=== PATIENT | male | born 1955 | race Caucasian/White ===

== ENCOUNTER 2020-01-01 01:03 | Emergency (ER) | payer BC, SELFPAY ==
--- NOTE | ~2020-01-01 | XR_ITS ---
EXAMINATION: XR chest 2V DATE: 01/01/2020 01:28 INDICATION: Chest pain and shortness of breath TECHNIQUE: PA and lateral views of the chest are obtained. COMPARISON: 03/04/2019, 05/04/2015 FINDINGS: There is a questionable nodular opacity of the right upper lung zone. There is no pleural e ffusion or pneumothorax. The cardiomediastinal silhouette is normal. The visualized bones and soft ti ssues are unremarkable. IMPRESSION: 1. Possible nodular opacity of the right upper lung zone. Recommend followup radiographs in 10-14 day s after appropriate therapy to evaluate for improvement/resolution. Reviewed, dictated and finalized at location A. LOADER MEAT IMPRESSION: 1. Possible nodular opacity of the right upper lung zone. Recommend followup ra diographs in 10-14 days after appropriate therapy to evaluate for improvement/r esolution.
--- NOTE | ~2020-01-01 | CT_ITS ---
EXAMINATION: CT abdomen pelvis w con INDICATION: Abdominal pain TECHNIQUE: Computed tomographic images of the abdomen and pelvis were obtained after the administrati on of 100 cc of Omnipaque 350 intravenous contrast. The dose-length product (DLP) was 558.91 mGy-cm. Automated exposure control and iterative reconstruction technique were employed. COMPARISON: None available FINDINGS: Minimal dependent atelectasis is present in the lung bases. The heart size is normal. There is a 9 mm lesion of the liver dome which appears to demonstrate peripheral enhancement, likely a hem angioma. The spleen, pancreas, and adrenal glands are normal. There is mild distention of the gallbla dder. No definite gallbladder wall thickening or gallstones are seen. The kidneys are unremarkable. N o pathologically enlarged abdominal or pelvic lymph nodes are identified. There is no free intraperit pierce gas or evidence of bowel obstruction. A moderate volume of colonic stool is present. The append ix is normal. There is mild lumbar spondylosis. IMPRESSION: 1. Mild gallbladder distention without definite additional findings of acute cholecystitis. Recommend right upper quadrant ultrasound if there is clinical concern for cholecystitis. These findings and recommendations were discussed with Dr. Brown Maria DO in the Emergency Dep artment at 0300 hours on 01/01/2020 by the Humanoid Radiologist. Reviewed, dictated and finalized at location A. RACT ASSISTANT IMPRESSION: 1. Mild gallbladder distention without definite additional findings of acute ch olecystitis. Recommend right upper quadrant ultrasound if there is clinical con cern for cholecystitis. These findings and recommendations were discussed with Wayne Calixto in the Emergency Department at 0300 hours on 01/01/2020 by the Humanoid Radiolog ist.
[2020-01-01 01:06] VITALS: BP 176/77; PULSE 80; RESP 20; TEMP 36.8; O2SAT 100
--- NOTE | 2020-01-01 01:06 | ED.CHESTPAIN ---
HPI - Chest Pain General Chief Complaint: Chest Pain Stated Complaint: CHEST PAIN Time Seen by Provider: 01/01/20 01:04 Source: patient Mode of arrival: ambulatory Limitations: no limitations History of Present Illness HPI narrative: A 64 y/o male presents to the ED with c/o chest pain. Pt states that 4 hours prior to his ED arrival, he started to have mid-back pain. He notes that the mid-back pain then moved to his bilateral lower chest chest and felt like a fullness.. Pt adds that he was nauseous today and has also been more SOB recently. He describes the CP as a pressure. Pt has no other complaints at this time. Patient states he feels like he needs to belch but cannot belch complaint: chest pain Onset (ago): hour(s) (4) Timing of current episode: constant Pain location: left chest and right chest Quality: other (Pressure) Associated symptoms: nausea, dyspnea and other (Mid-back pain) Related Data Home Medications Medication Instructions Recorded Confirmed rosuvastatin 20 mg tablet 20 mg PO DAILY 10/05/19 Allergies Allergy/AdvReac Type Severity Reaction Status Date / Time No Known Allergies Allergy Mild Verified 10/05/19 08:52 Review of Systems Review of Systems: All systems reviewed & are unremarkable except as noted in HPI and below Cardiovascular: Cardiovascular: Reports chest pain (Bilateral) Respiratory: Respiratory: Reports dyspnea Gastrointestinal: Gastrointestinal: Reports nausea Musculoskeletal: Musculoskeletal: Reports back pain (Mid) [facility] Past Medical History Medical History (Updated 01/01/20 @ 05:44 by Brown Maria DO) Arm fracture, left Essential (primary) hypertension LULU (obstructive sleep apnea) Uses continuous positive airway pressure (CPAP) ventilation at home Surgical History Surgical History (Updated 01/01/20 @ 01:09 by Gabriela Rogers) No pertinent past surgical history Family History Family History Mother Family history of type 2 diabetes mellitus Diabetes mellitus Other Family history of coronary artery disease Social History Social History Smoking status: Never smoker Alcohol intake: current Gender identity (if verbalized by the patient): Male Exam Narrative: Exam Narrative: APPEARANCE: No acute distress, nontoxic, resting in bed HEENT: Normocephalic, atraumatic, OMM RESPIRATORY: No respiratory distress, clear to auscultation bilaterally with no rhonchi wheezing or rales CARDIOVASCULAR: RRR s murmur ABDOMINAL: Soft, nondistended, tender palpation epigastric and right upper quadrant, no tenderness left upper quadrant, right lower quadrant left lower quadrant, no rebound or guarding MUSCULOSKELETAl: Moves all extremities. No clubbing, cyanosis or edema. NEURO: Awake and alert. Following commands, speech normal, no focal deficits SKIN:: Warm, dry. Normal Color PSYCHIATRIC: Normal affect/mood Course Course Emergency Course: Patient states that they are feeling much better at this time. States abdominal pain has resolved. Repeat abdominal exam shows the patient's abdomen to be soft and nontender. Discussed with patient results of workup and diagnosis. Discussed need for follow-up with primary care physician, reasons to return to the emergency department in proper use of medication. Patient understands and agrees to current treatment plan. Vital Signs Vital signs: Vital Signs Temperature 98.3 F 01/01/20 01:06 Pulse Rate 80 01/01/20 01:06 Respiratory Rate 20 01/01/20 01:06 Blood Pressure 176/77 H 01/01/20 01:06 Pulse Oximetry 100 01/01/20 01:06 Temperature 98.3 F 01/01/20 01:06 Pulse Rate 62 01/01/20 05:26 Respiratory Rate 16 01/01/20 05:26 Blood Pressure 130/74 01/01/20 05:26 Pulse Oximetry 98 01/01/20 05:26 MDM - Chest Pain MDM Narrative Medical decision making narrative: Patient's abdomen is soft without signi
--- NOTE | 2020-01-01 01:08 | ECG_ITS ---
Measurements Intervals [place] Rate: 73 P: 2 CO: 167 QRS: 18 QRSD: 97 T: 64 QT: 363 QTc: 403 Interpretive Statements SINUS RHYTHM BORDERLINE T WAVE ABNORMALITY- LATERAL LEADS BASELINE ARTIFACT- I, II, III, AVL, AVF BORDERLINE ECG Electronically Signed On 01-01-2020 8:37:04 QUALITY PROCESS LEAD by Malik Rader D.O.
[2020-01-01 01:22] LABS: Basophils Absolute Auto 0.1 K/mm3 (0.0-0.1); Basophils Percent Auto 0.6 % (0.2-1.2); Eosinophils Absolute Auto 0.3 K/mm3 (0-0.3); Eosinophils Percent Auto 2.9 % (0-4.4); Immature Granulocyte Absolute 0.04 K/mm3 (0.00-0.031); Immature Granulocyte Percent A 0.4 % (0-0.5); Lymphocytes Absolute Auto 2.61 K/mm3 (0.9-3.2); Lymphocytes Percent Auto 28.7 % (18.3-44.2); Mean Corpuscular HGB Conc 32.6 g/dl (32-36); Mean Corpuscular Hemoglobin 30.5 pg (26-34); Mean Corpuscular Volume 93.7 fl (80-100); Mean Platelet Volume 10.4 fl (7.4-10.4); Monocytes Absolute Auto 0.7 K/mm3 (0.1-0.6); Neutrophils Absolute Auto 5.4 K/mm3 (1.3-6.7); Neutrophils Percent Auto 59.4 % (45.5-73.1); Nucleated Red Blood Cells Perc 0.2 % (0.0-0.2); Platelet Count Result 302 k/mm3 (150-375); Red Blood Count 4.91 M/mm3 (4.6-6.20); Red Cell Distribution Width 12.1 % (11.5-14.5); White Blood Count 9.1 K/mm3 (4.5-10.0)
[2020-01-01 02:01] LABS: INR 0.9; Prothrombin Time 12.3 Seconds (11.1-14.7)
[2020-01-01 02:02] LABS: Partial Thromboplastin Time 30.4 SECONDS (22.3-36.8)
[2020-01-01 02:03] LABS: Alanine Aminotransferase 16 U/L (4-50); Albumin Level 4.6 g/dL (3.5-5.1); Alkaline Phosphatase 63 U/L (38-126); Aspartate Amino Transferase 20 U/L (17-59); Bilirubin,Total 0.6 mg/dL (0.2-1.3); Blood Urea Nitrogen 14 mg/dL (9-20); Calcium 9.1 mg/dL (8.4-10.2); Carbon Dioxide 27 mmol/L (22-30); Chloride 91 mmol/L (98-107); Estimated Glomerular Filt Rate > 60; Glucose 119 mg/dL (75-110); Lipase 215 U/L (23-300); Potassium 4.4 mmol/L (3.4-5.0); Sodium 130 mmol/L (137-145)
[2020-01-01 02:14] LABS: Troponin I < 0.012 ng/mL (0.000-0.034)
[2020-01-01 02:53] VITALS: BP 148/79; PULSE 65; RESP 14; O2SAT 100
[2020-01-01] MEDS: KETOROLAC 30 MG/ML VIAL (*BKC) IV PUSH (02:54)
[2020-01-01 03:00] VITALS: O2SAT 99
[2020-01-01 03:37] LABS: Add Urine Microscopic? NO; Appearance Urine Clear (Clear); Bilirubin Urine Negative (Negative); Blood Urine Negative (Negative); Color Urine Straw (Yellow); Glucose Urine UA Negative (Negative); Ketones Urine Negative (Negative); Leukocyte Esterase Ur Negative LEU/UL (Negative); Nitrate Urine Negative (Negative); Protein Urine Negative (Negative); Specific Grav Ur 1.025 (1.001-1.035); Urobilinogen Urine Negative mg/dL (<2.0)
[2020-01-01 05:10] LABS: Troponin I < 0.012 ng/mL (0.000-0.034)
[2020-01-01 05:26] VITALS: BP 130/74; PULSE 62; RESP 16; O2SAT 98
[2020-01-01 05:57] VITALS: BP 129/86; PULSE 80; RESP 19; TEMP 36.2; O2SAT 100
== END 2020-01-01 05:58 | disposition home or self-care (01) ==
PROVIDERS: Emergency Provider Emergency Medicine; PCP Family Medicine
DX: R07.9 Chest pain, unspecified (principal); R10.31 Right lower quadrant pain; G47.33 Obstructive sleep apnea (adult) (pediatric); I10 Essential (primary) hypertension
CPT/HCPCS: 36415; 71046; 74177; 80053; 81003; 83690; 84484; 85025; 85610; 85730; 93005; 96374; 96375; 99284; J0131; J1885; Q9967

== ENCOUNTER → 2020-01-04 11:13 | Outpatient (CLI) | payer BC, SELFPAY ==
--- NOTE | ~2020-01-04 | US_ITS ---
EXAMINATION: US abdomen complete EXAM DATE: 01/04/2020 11:38 INDICATION: Right upper quadrant pain. Abnormal CT report. TECHNIQUE: Multiple grayscale and Doppler images of the complete abdomen were obtained (by a technolo gist who performed the scan) and subsequently reviewed. Correlation is made to CT 01/01/2020. FINDINGS: The abdominal aorta is normal in caliber. Visualized portion IVC is patent. The pancreatic head a nd body are normal in appearance. The pancreatic tail is not visualized. Mildly echogenic liver parenchyma, hepatic steatosis. There are no focal liver lesions identified. There is no evidence of intrahepatic biliary duct dilation. Portal venous flow was seen in the hepa topedal, normal direction and has normal Doppler waveform. Common bile duct measures 4 mm, which is normal. The gallbladder wall is normal in thickness, with ex pected amount of distention. No sonographic evidence of pericholecystic fluid. There is no cholelit hiases. Technologist performing exam reports patient did not demonstrate sonographic Diggs's sign. Please note that this sign is less reliable in patients who have received pain medication. Right kidney: There is normal contour and echogenicity. It measures 10.4 x 4.7 x 6.0 centimeters. There are no focal renal lesions identified. There is no hydronephrosis. Left kidney: There is normal contour and echogenicity. It measures 11.1 x 5.4 x 4.4 centimeters. T here are no focal renal lesions identified. There is no hydronephrosis. The spleen measures 8.7 centimeters and is morphologically normal. IMPRESSION: 1. Hepatic steatosis. 2. Unremarkable gallbladder. Reviewed, dictated and finalized at location B. TRONIC SECURITY TECHNICIAN
== END ==
PROVIDERS: PCP Family Medicine; Visit Provider Nurse Practitioner Family
DX: R10.11 Right upper quadrant pain (principal); K76.0 Fatty (change of) liver, not elsewhere classified
CPT/HCPCS: 76700

== ENCOUNTER → 2020-01-27 10:45 | Outpatient (CLI) | payer BC, SELFPAY ==
--- NOTE | ~2020-01-27 | XR_ITS ---
XR chest 2V DATE: 01/27/2020 10:55 INDICATION: Chest pain, shortness of breath Possible nodular opacity of right upper lung zone reported on 01/01/2020 chest radiographic examinatio n; 10-14 day follow-up was recommended. TECHNIQUE: PA and lateral views COMPARISON: 01/01/2020 PA and lateral chest FINDINGS: No pulmonary infiltrate or consolidation, pleural effusion or pulmonary vascular congestion or pneumothorax. The questioned nodular opacity of the right upper lung zone on the 01/01/2020 PA chest radiograph is n ot confirmed on this examination. Normal heart size. Degenerative spurring of the thoracic spine. IMPRESSION: No active cardiopulmonary disease Reviewed, dictated and finalized at location B.
== END ==
PROVIDERS: PCP Nurse Practitioner Family; Visit Provider Nurse Practitioner Family
DX: R93.89 Abnormal findings on diagnostic imaging of other specified body structures (principal)
CPT/HCPCS: 71046

== ENCOUNTER 2020-08-25 07:41 | Outpatient (CLI) | payer MEDICARE, SELFPAY ==
--- NOTE | ~2020-08-25 | US_ITS ---
EXAMINATION: US right upper quadrant DATE: 08/25/2020 08:20 INDICATION: Right upper quadrant pain TECHNIQUE: Multiple grayscale and Doppler ultrasound images of the abdomen were obtained. COMPARISON: 01/04/2020 FINDINGS: The head and and body of the pancreas are normal. The pancreatic tail is obscured by bowel gas. The liver demonstrates increased echogenicity, heterogenous echotexture, and decreased through t ransmission. No surface nodularity. Normal hepatopetal flow in the main portal vein. The gallbladder is normal with no abnormal wall thickening, pericholecystic fluid or stones. The normal common bile d uct measures 2 mm. There was no sonographic Diggs sign. IMPRESSION: 1. Diffuse hepatic steatosis. Reviewed, dictated and finalized at location A.
== END 2020-08-25 07:42 | disposition home or self-care (01) ==
PROVIDERS: PCP Nurse Practitioner Family; Visit Provider Nurse Practitioner Family
DX: K76.0 Fatty (change of) liver, not elsewhere classified (principal)
CPT/HCPCS: 76705

== ENCOUNTER 2020-09-04 07:13 | Outpatient (CLI) | payer MEDICARE, SELFPAY ==
--- NOTE | ~2020-09-04 | NM_ITS ---
EXAMINATION: NM hepatobiliary w pharm DATE: 09/04/2020 09:56 INDICATION: Right upper quadrant abdominal pain. COMPARISON: CT abdomen and pelvis 01/01/2020, ultrasound abdomen 08/25/2020 TECHNIQUE: 5.1 mCi Tc-99m mebrofenin (Choletec) was administered intravenously. Scintigraphic images of the abdomen were obtained for one hour. Then, 1.7 mcg sincalide (Kinevac) IV was administered, an d imaging was continued for 30 minutes. FINDINGS: There is normal clearance of radiotracer from the blood pool. There is homogeneous tracer u ptake by the liver. Activity progresses to the bowel and gallbladder. Gallbladder ejection fraction (GBEF) was 7%. Note that most patients with gallbladder dysfunction have GBEF < 35%, which overlaps w ith the broad normal range of 10-90%. IMPRESSION: 1. Low gallbladder ejection fraction, consistent with gallbladder dysfunction and/or chronic cholecy stitis. Reviewed, dictated and finalized at location A. IMPRESSION: 1. Low gallbladder ejection fraction, consistent with gallbladder dysfunction and/or chronic cholecystitis.
== END 2020-09-04 07:14 | disposition home or self-care (01) ==
PROVIDERS: PCP Family Medicine; Visit Provider Nurse Practitioner Family
DX: R10.11 Right upper quadrant pain (principal)
CPT/HCPCS: 78227; A9537; J2805

== ENCOUNTER 2020-09-06 09:16 | Outpatient (CLI) | payer MEDICARE, SELFPAY ==
[2020-09-06 18:18] LABS: SARS-CoV-2 RNA PCR Negative
== END 2020-09-06 09:17 | disposition home or self-care (01) ==
LOC: ANHCOVIDDT 09:16
PROVIDERS: PCP Family Medicine; Visit Provider Surgery
DX: Z01.812 Encounter for preprocedural laboratory examination (principal); Z20.828 Contact with and (suspected) exposure to other viral communicable diseases
CPT/HCPCS: 36415; 80076; 82150; 83690; 87635; C9803; U0003

== ENCOUNTER 2020-09-06 09:28 | Outpatient (CLI) | payer MEDICARE, SELFPAY ==
[2020-09-06 09:56] LABS: Alanine Aminotransferase 20 U/L (4-50); Albumin Level 4.8 g/dL (3.5-5.1); Alkaline Phosphatase 58 U/L (38-126); Amylase 62 U/L (30-110); Aspartate Amino Transferase 23 U/L (17-59); Bilirubin,Total 0.5 mg/dL (0.2-1.3); Lipase 263 U/L (23-300)
== END 2020-09-06 09:29 | disposition home or self-care (01) ==
PROVIDERS: PCP Family Medicine; Visit Provider Surgery
DX: K82.8 Other specified diseases of gallbladder (principal)
CPT/HCPCS: 36415; 80076; 82150; 83690

== ENCOUNTER 2020-09-08 00:57 | Day surgery (SDC) | payer MEDICARE, SELFPAY ==
[2020-09-06 09:51] VITALS: BMI 25.8
--- NOTE | 2020-09-07 10:17 | WPDANESEPPF ---
Anes - Initial Pre Proc Eval Procedure: Operation Date: 09/08/20 10:00 Proposed Procedures p Laparoscopic Cholecystectomy with Intra Operative Cholangiograms, Possible Open - Elmer Harris MD s Umbilical Hernia Repair - Elmer Harris MD Date/Time: 09/07/20 10:17 Surgeon: Elmer Harris MD Pre Op Diagnosis: biliary dyskinesia, umbilical hernia Patient Data Age: 64 Gender: M Height: 1.78 m Weight: 81.65 kg Allergies Allergy/AdvReac Type Severity Reaction Status Date / Time No Known Allergies Allergy Mild Verified 09/06/20 09:51 Home Medications Medication Instructions Recorded Confirmed Type doxycycline hyclate 20 mg tablet 20 mg PO DAILY 09/05/20 09/08/20 History lisinopril-hydrochlorothiazide 1 tablet PO DAILY 09/06/20 09/08/20 History omeprazole 20 mg PO DAILY 09/06/20 09/08/20 History Patient hx anesthesia problems: none Family hx anesthesia problems: none [facility] Past Medical History Medical History (Updated 09/07/20 @ 09:26 by Lindy Nash CMA) Arm fracture, left Essential (primary) hypertension LULU (obstructive sleep apnea) Uses continuous positive airway pressure (CPAP) ventilation at home Surgical History Surgical History (Updated 09/06/20 @ 08:13 by Lindy Nash CMA) History of surgery on arm Family History Family History Mother Family history of type 2 diabetes mellitus Diabetes mellitus Other Family history of coronary artery disease Social History Social History (Updated 09/05/20 @ 15:50 by Celeste Lindo [facility]) Smoking status: Never smoker Alcohol intake: current Drinks per week: 10 Gender identity (if verbalized by the patient): Male Spiritual care concerns: No Anes - Eval Final PreProcedure Day of Procedure 09/07/20 10:17 Patient weight: overweight Heart: regular rate and rhythm Lungs: clear to auscultation and normal air movement Airway: Mallampati scale class II Neurological: alert and oriented Last oral intake: >/= 8 hours ASA classification: III Emergent: no Anesthetic plan: proceed Anesthesia type and monitoring: general ETT and standard monitoring Informed Consent: The patient's anesthetic plan and its attendant risks and benefits were discussed with the patient/family/POA. Questions were solicited and answers provided to the satisfaction of the patient/family/POA.
[2020-09-08] VITALS (8 sets, daily range): BP systolic 137–166; BP diastolic 70–86; PULSE 53–71; RESP 12–20; TEMP 36.1–36.5; O2SAT 98–100
[2020-09-08] MEDS: LACTATED RINGERS 1,000 ML 30 ML IV CONT ×2 (09:15→12:21)
[2020-09-08] MEDS: ACETAMINOPHEN 500 MG TABLET 1000 MG PO (09:29)
[2020-09-08] MEDS: KETOROLAC 15 MG/ML VIAL (*BKC) IV PUSH (09:30)
--- NOTE | 2020-09-08 10:21 | WPDHPUPDATE1 ---
History and Physical Update Update Date/Time: 09/08/20 10:21 History and Physical has been reviewed, including an updated exam of the patient. There are NO changes in the patient's condition. Risks, benefits, and alternatives have been discussed and questions answered. Patient agrees to proceed with procedure.
[2020-09-08] MEDS: ceFAZolin 2 GM/D5W 50 ML 2 GM/50 ML BAG IVPB (10:44)
[2020-09-08] MEDS: BUPIVACAINE/EPINEPHRINE 0.5% 10 ML VIAL 30 ML INFILTRATE (11:25)
--- NOTE | 2020-09-08 12:22 | PM.PROC ---
Procedure Note - Detailed Date of procedure: 09/08/20 Pre-op diagnosis: biliary dyskinesia, umbilical hernia Chronic Cholecystitis with biliary dyskinesia small umbilical hernia Post-op diagnosis: same Procedure performed: Laparoscopic Cholecystectomy Repair of small umbilical hernia Description of procedure: Patient was seen preoperatively in the holding area and risks, benefits and alternatives confirmed. Patient was taken to the operating room and general anesthesia was induced. A time out was then preformed with the surgery team confirming patient and site of surgery. The abdomen was prepped and draped in the usual sterile fashion. Incision was made just above the umbilicus with an 15 blade knife. This was made in an a downward facing curvilinear line and then we carefully dissected through subcu tissues and dissected out the preperitoneal fat that was up in it umbilical hernia. This was carefully excised the peritoneum entered under direct vision and Zuniga cannula placed after the stay sutures noted below were placed. The hernia defect ended up being a little less than 1 cm in diameter. I placed 2 stay sutures of O- Vicryl on either side of the mid-line fascia beneath the umbilicus and was then able to slide in the Zuniga cannula through the fascial defect into the peritoneum. First under low flow and then under high flow the abdomen was insufflated with carbon dioxide never exceeding a pressure of 14. Three 5 mm trocars were then introduced under direct vision. The following trocars were introduced under direct vision: a 5 mm in the epigastrium and two 5 mm trocars along the right costal margin laterally in the subcostal area. There were no significant adhesions to the gallbladder. I then carefully used the L-shaped cautery and the [place] dissector to dissect out the triangle of Calot. I then was able to dissect out both the cystic duct and cystic artery and identify a window of safety. The gall bladder was grasped and the cystic duct and artery were dissected free and clipped with an 5 mm endo-clip lath tier. The cystic duct and artery were clipped with use of 2 clips on the patient's side 1 on the gallbladder side utilizing a 5 mm endoclip-lath tier. The cystic duct was then transected. The cystic artery was also transected at this point. The gall bladder was removed using electrocautery and then removed from the abdomen using a large 10 mm grasper via the umbilical incision. The trocars were removed visualizing hemostasis and the remaining gas evacuated. The large trocar site at the umbilicus/ site of the hernia defect, was closed with use of three interrupted # 1 Vicryl sutures in a transverse manor. The 2 stay sutures mentioned above on either side of the fascia were removed. I then used 1 more 0 Vicryl suture to tack the base of the umbilicus to the underlying fascia. Several 4 0 Monocryl sutures were used in the subcu tissues to approximate the subcutaneous tissues underneath the skin closure here at the umbilicus. Further local anesthetic was placed into each incision for postop pain control. The skin incisions were closed with subcuticular sutures of 4-0 Monocryl. Surgical glue then was applied to all the incisions. Patient tolerated the procedure well was taken to the recovery room in good condition. Implants: none Anesthesia: JACKSON Surgeon: Elmer Harris MD Digital Print Operator: Lore HARRIS, OR assistant press operator offset Estimated blood loss (mL): 5 Drains: No Packing: No Pathology: yes (Gallbladder and some preperitoneal fat from the umbilical hernia site) Complications: No immediate complications Condition: stable Disposition: PACU Findings: 1. A fat containing umbilical hernia with a defect of about 1 cm. 2. The gallbladder upon palpation after removal which was not inflamed and seemed to have a soft tissue density at its upper end to palpation. Perhaps an adenomyoma.
[2020-09-08] MEDS: oxyCODONE HCL (*CRX) 5 MG TAB IR PO (14:08)
== END 2020-09-08 14:34 | disposition home or self-care (01) ==
PROVIDERS: PCP Family Medicine; Visit Provider Surgery
PROC: 0FT44ZZ Resection of Gallbladder, Percutaneous Endoscopic Approach (ICD-10-PCS; CPT 47562; principal; 2020-09-08 10:00)
PROC: (CPT 47562; 2020-09-08 10:00)
DX: K81.1 Chronic cholecystitis (principal); K42.9 Umbilical hernia without obstruction or gangrene; G47.33 Obstructive sleep apnea (adult) (pediatric); I10 Essential (primary) hypertension
CPT/HCPCS: 47562; 88300; 88304; A9270; J0330; J0690; J1100; J1885; J2250; J2405; J2704; J3010; J7030; J7120

== ENCOUNTER 2020-09-12 09:23 | Outpatient (CLI) | payer MEDICARE, SELFPAY ==
[2020-09-14 08:53] LABS: H pylori Ag Stool Not Detected (Not Detected)
== END 2020-09-12 09:24 | disposition home or self-care (01) ==
PROVIDERS: PCP Family Medicine; Visit Provider Surgery
DX: R10.11 Right upper quadrant pain (principal)
CPT/HCPCS: 87338

== ENCOUNTER 2022-05-30 07:24 | Outpatient (CLI) | payer MEDICARE, SELFPAY ==
--- NOTE | ~2022-05-30 | MR_ITS ---
EXAMINATION: MR brain/brain stem wo con DATE: 05/30/2022 08:44 INDICATION: Bilateral upper extremity tremor. TECHNIQUE: Magnetic resonance imaging (MRI) of the brain and brainstem was performed without intraven ous contrast. COMPARISON: None. FINDINGS: There is no intracranial hemorrhage, acute infarction, or abnormal intracranial mass lesion . The ventricles are normal in size. The paranasal sinuses are clear. The orbits are normal. The mast oid air cells are normal. IMPRESSION: 1. Normal brain. Reviewed, dictated and finalized at location A. IMPRESSION: 1. Normal brain.
== END 2022-05-30 07:25 | disposition home or self-care (01) ==
PROVIDERS: PCP Family Medicine; Visit Provider Nurse Practitioner Family
DX: R25.1 Tremor, unspecified (principal)
CPT/HCPCS: 70551

== ENCOUNTER 2023-02-25 13:08 | Outpatient (CLI) | payer MEDICARE, SELFPAY ==
--- NOTE | ~2023-02-25 | XR_ITS ---
EXAMINATION: XR chest 2V 02/25/2023 13:38 INDICATION: Chest pain PROCEDURE: 2 view chest COMPARISON: Comparison to multiple prior studies sequentially, with oldest reviewed study dated 05/04. FINDINGS: The lungs are clear. The cardiomediastinal silhouette is within normal limits. There are no pleural effusions. There is no pneumothorax suspected. IMPRESSION: 1: NO ACUTE CARDIOPULMONARY DISEASE. Reviewed, dictated and finalized at location A.
== END 2023-02-25 13:09 | disposition home or self-care (01) ==
PROVIDERS: PCP Family Medicine; Visit Provider Family Medicine
DX: M54.6 Pain in thoracic spine (principal)
CPT/HCPCS: 71046

== ENCOUNTER → 2023-10-06 09:48 | Outpatient (CLI) | payer MEDICARE, SELFPAY ==
--- NOTE | ~2023-10-06 | XR_ITS ---
EXAMINATION: XR chest 2V 10/06/2023 10:10 INDICATION: Localized swelling. PROCEDURE: 2 view chest COMPARISON: Comparison to multiple prior studies sequentially, with oldest reviewed study dated 03/04. FINDINGS: The lungs are clear. The cardiomediastinal silhouette is within normal limits. There are no pleural effusions. There is no pneumothorax suspected. IMPRESSION: 1: NO ACUTE CARDIOPULMONARY DISEASE. Reviewed, dictated and finalized at location B. NOLOGY MANAGER
== END ==
PROVIDERS: PCP Family Medicine; Visit Provider Family Medicine
DX: R22.2 Localized swelling, mass and lump, trunk (principal)
CPT/HCPCS: 71046

== ENCOUNTER 2024-08-10 02:09 | Day surgery (SDC) | payer MEDICARE, SELFPAY ==
[2024-07-15 12:05] VITALS: BMI 29.0
[2024-08-10 06:36] VITALS: BMI 28.7
[2024-08-10 06:44] VITALS: BP 147/76; PULSE 70; RESP 20; TEMP 36.7; O2SAT 100
--- NOTE | 2024-08-10 06:52 | WPDANESEPPF ---
Anes - Initial Pre Proc Eval Procedure: Operation Date: 08/10/24 08:00 Proposed Procedures p Colonoscopy - Mk Marcum MD Date/Time: 08/10/24 06:52 Surgeon: Mk Marcum MD Pre Op Diagnosis: Family HX neoplasm of digestive organs Patient Data Age: 68 Gender: M Height: 1.75 m Weight: 88.2 kg Last Vital Signs Temp 98.1 F 08/10/24 06:44 Pulse 70 08/10/24 06:44 Resp 20 08/10/24 06:44 BP 147/76 H 08/10/24 06:44 Pulse Ox 100 08/10/24 06:44 O2 Del Method Room Air 08/10/24 06:44 Allergies Allergy/AdvReac Type Severity Reaction Status Date / Time No Known Allergies Allergy Mild Verified 07/15/24 12:03 Home Medications Medication Instructions Recorded Confirmed Type dicyclomine 20 mg tablet 20 mg PO BID 08/23/21 07/15/24 History hydrocortisone acetate 30 mg 30 mg RECTAL BID #12 ea 03/30/24 08/10/24 Rx rectal suppository (Proctocort) carbidopa 25 mg-levodopa 100 mg 1.5 tablet PO TID #120 tabs 05/11/24 07/15/24 Rx tablet lisinopril 20 mg tablet 20 mg PO DAILY #90 tabs 07/15/24 07/15/24 Rx Patient hx anesthesia problems: none Family hx anesthesia problems: none Results Review: All pre-operative results and documents have been reviewed as part of the pre-operative evaluation. [facility] Past Medical History Medical History Arm fracture, left Essential (primary) hypertension Lower abdominal pain LULU (obstructive sleep apnea) Supraclavicular fossa fullness Uses continuous positive airway pressure (CPAP) ventilation at home Surgical History Surgical History History of surgery on arm Hx laparoscopic cholecystectomy Umbilical hernia without mention of obstruction or gangrene Family History Family History Mother Family history of type 2 diabetes mellitus Diabetes mellitus Lung cancer Father Tobacco use Sibling Diabetes mellitus Carcinoma of colon Grandparent Parkinson's disease Other Family history of coronary artery disease Social History Social History Smoking status: Never smoker Second hand tobacco smoke exposure: No Alcohol intake: current Drinks per week: 8 Alcohol use details: social Substance use: never Substance use type: does not use Do You Feel Safe in your Home?: Yes Lack of Transportation: No Lack of Food: Never True Current Housing: I Have Housing Concerned About Future Housing: No Difficulty Paying Gas/Electric Bills: No Difficulty Paying for Meds: No Currently Unemployed: No Education: Bachelor's Degree Difficulty w/ Childcare or Family Care: No Living arrangements: alone Occupation/Education: retired Additional occupation/education comments: [employer] Gender identity (if verbalized by the patient): Male Spiritual care concerns: No Anes - Eval Final PreProcedure Day of Procedure 08/10/24 06:52 Patient weight: obese Heart: regular rate and rhythm Lungs: clear to auscultation Airway: Mallampati scale class II Neurological: alert and oriented Last oral intake: >/= 8 hours ASA classification: III Emergent: no Anesthetic plan: proceed Anesthesia type and monitoring: general GIVS and standard monitoring Results Review: All pre-operative results and documents have been reviewed as part of the pre-operative evaluation. HTN, LULU on CPAP but currently without a functioning mask for 3 days, parkinsons disease on 3 x daily med (did not take this am). Informed Consent: The patient's anesthetic plan and its attendant risks and benefits were discussed with the patient/family/POA. Questions were solicited and answers provided to the satisfaction of the patient/family/POA.
[2024-08-10] MEDS: LACTATED RINGERS 1,000 ML 30 ML IV CONT (06:54)
--- NOTE | 2024-08-10 07:53 | PM.HPGS ---
History of Present Illness History of Present Illness Consent: Risks, benefits, and alternatives have been discussed and questions answered. Patient agrees to proceed with procedure. Chief complaint: Family HX neoplasm of digestive organs Narrative: Jarett Walton is a 68 year old male with last colonoscopy 6 years ago, sibling had colon cancer Review of Systems Review of Systems: All systems reviewed & are unremarkable except as noted in HPI and below PMFSH Past Medical History Medical History Arm fracture, left Essential (primary) hypertension Lower abdominal pain LULU (obstructive sleep apnea) Supraclavicular fossa fullness Uses continuous positive airway pressure (CPAP) ventilation at home Surgical History Surgical History History of surgery on arm Hx laparoscopic cholecystectomy Umbilical hernia without mention of obstruction or gangrene Family History Family History Mother Family history of type 2 diabetes mellitus Diabetes mellitus Lung cancer Father Tobacco use Sibling Diabetes mellitus Carcinoma of colon Grandparent Parkinson's disease Other Family history of coronary artery disease Social History Social History Smoking status: Never smoker Second hand tobacco smoke exposure: No Alcohol intake: current Drinks per week: 8 Alcohol use details: social Substance use: never Substance use type: does not use Do You Feel Safe in your Home?: Yes Lack of Transportation: No Lack of Food: Never True Current Housing: I Have Housing Concerned About Future Housing: No Difficulty Paying Gas/Electric Bills: No Difficulty Paying for Meds: No Currently Unemployed: No Education: Bachelor's Degree Difficulty w/ Childcare or Family Care: No Living arrangements: alone Occupation/Education: retired Additional occupation/education comments: sales -[employer] Gender identity (if verbalized by the patient): Male Spiritual care concerns: No Meds Home Medications and Allergies Home Medications Medication Instructions Recorded Confirmed Type dicyclomine 20 mg tablet 20 mg PO BID 08/23/21 07/15/24 History hydrocortisone acetate 30 mg 30 mg RECTAL BID #12 ea 03/30/24 08/10/24 Rx rectal suppository (Proctocort) carbidopa 25 mg-levodopa 100 mg 1.5 tablet PO TID #120 tabs 05/11/24 07/15/24 Rx tablet lisinopril 20 mg tablet 20 mg PO DAILY #90 tabs 07/15/24 07/15/24 Rx Allergies Allergy/AdvReac Type Severity Reaction Status Date / Time No Known Allergies Allergy Mild Verified 07/15/24 12:03 Vital Signs Vital Signs - 24 hr 08/10/24 06:44 Temperature 98.1 F Pulse Rate 70 Respiratory Rate 20 Blood Pressure 147/76 H Pulse Oximetry 100 Oxygen Delivery Room Air Exam Const: General: comfortable and no acute distress HENMT: Face/Nose/Sinus: Normal nares present Eyes: General: appearance normal, both eyes and all related structures Neck: Neck: no JVD Resp: Auscultation: clear to auscultation bilaterally Cardio: Rate: regular rate Rhythm: regular rhythm GI: Inspection: non-distended GI Palp: Yes Soft to palpation Skin: General skin exam: normal color Neuro: General: gait normal Speech: normal speech Extrem: General: normal to inspection Psych: Mental Status: mental status grossly normal Assessment and Plan Assessment and plan (1) Family hx of colon cancer: Code(s): Z80.0 - Family history of malignant neoplasm of digestive organs Status: Acute Assessment and Plan: colonoscopy
[2024-08-10 08:14] VITALS: BP 117/70; PULSE 62; RESP 16; O2SAT 93
[2024-08-10 08:24] VITALS: BP 128/80; PULSE 61; RESP 19; O2SAT 98
[2024-08-10 08:34] VITALS: BP 142/85; PULSE 58; RESP 16; O2SAT 99
== END 2024-08-10 08:45 | disposition home or self-care (01) ==
PROVIDERS: PCP Family Medicine; Referring Provider Physician Assistant Medical; Visit Provider Internal Medicine Gastroenterology
PROC: 0DJD8ZZ Inspection of Lower Intestinal Tract, Via Natural or Artificial Opening Endoscopic (ICD-10-PCS; CPT 45378; principal; 2024-08-10 08:00)
DX: Z12.11 Encounter for screening for malignant neoplasm of colon (principal); K63.5 Polyp of colon; K64.8 Other hemorrhoids; K57.30 Diverticulosis of large intestine without perforation or abscess without bleeding; I10 Essential (primary) hypertension; G47.33 Obstructive sleep apnea (adult) (pediatric); E66.9 Obesity, unspecified; Z68.28 Body mass index [BMI] 28.0-28.9, adult; Z99.89 Dependence on other enabling machines and devices; Z98.890 Other specified postprocedural states; Z90.49 Acquired absence of other specified parts of digestive tract; Z80.1 Family history of malignant neoplasm of trachea, bronchus and lung; Z80.0 Family history of malignant neoplasm of digestive organs; Z82.49 Family history of ischemic heart disease and other diseases of the circulatory system
CPT/HCPCS: 45385; 88305; J2003; J2704; J7120